=== PATIENT | male | born 1985 | race Caucasian/White ===

== ENCOUNTER 2024-08-06 16:39 | Emergency (ER) | payer OTHER, SELFPAY ==
[2024-08-06 16:49] VITALS: BP 168/105; PULSE 92; RESP 18; TEMP 36.8; BMI 36.1
--- NOTE | 2024-08-06 17:42 | ED_ITS ---
HPI - General Adult General Chief complaint: Laceration/Wound Stated complaint: hit on head with metal tool Time Seen by Provider: 08/06/24 16:53 Source: patient Mode of arrival: ambulatory Limitations: no limitations History of Present Illness HPI narrative: 39-year-old male presenting today with scalp laceration. Patient was putting in a fence when he pounded a stake in the ground, the tool ricocheted and hit him on the top of the head. This occurred approximately 30 minutes ago. He had an immediate headache, which resolved. He did not lose consciousness. He denies any changes in his vision or hearing. He denies any confusion, nausea or vomiting. Tetanus shot was updated 12/04/2023. Related Data Home Medications ?Medication ?Instructions ?Recorded ?Confirmed No Known Home Medications 08/06/24 08/06/24 Allergies Allergy/AdvReac Type Severity Reaction Status Date / Time No Known Allergies Allergy Unknown Unknown Verified 08/06/24 16:48 Review of Systems Status of ROS: Reports: 6 or more systems reviewed and unremarkable except as noted in History and below [facility] Medical History History of hyperlipidemia ?Z86.39 - Personal history of other endocrine, nutritional and metabolic disease (ICD-10) Exposure to severe acute respiratory syndrome coronavirus 2 (SARS-CoV-2) ?Z20.822 - Contact with and (suspected) exposure to COVID-19 (ICD-10) Social History Smoking Status: Never smoker How often do you have a drink containing alcohol: never How often do you have six or more drinks on one occasion: Never AUDIT-C Alcohol total score: 0 Non-prescribed substance use: denies use service: No Exam Narrative: Exam Narrative: Well-nourished well-developed patient in no acute distress. Alert and oriented. Answers questions appropriately. Mood and affect are appropriate. Thoughts are goal oriented and rational. No tangential or magical thinking noted. Aleah ent speaks in full sentences without needing to catch his breath. HEENT: Normocephalic . Pupils are equally round reactive to light. Extraocular muscles are intact. Conjunctivae are moist without any icterus noted. Moist mucous membranes. Patient has an approximately 2 in laceration to the top of the scalp, just distal to the front hairline in the center of the head. The laceration penetrates into the subcutaneous tissue, there is no bony visualization. There is no arterial bleeding noted. Const: Vital Signs, click to edit/add: Vital Signs - 24 hr 08/06/24 16:49 Temperature 98.2 F Pulse Rate [Pulse Oximeter] 92 Respiratory Rate 18 Blood Pressure [Ri ght Upper Arm] 168/105 H Course Course ED Course: The area was anesthetized with lidocaine with epinephrine. The wound was then irrigated and explored. No foreign bodies visualized. Running suture with 3-0 Prolene was placed. Patient tolerated the procedure well. Good hemostasis is achieved. Wound is dressed with pressure dressing. Vital Signs Vital signs: Initial Vital Signs Temperature 98.2 F 08/06/24 16:49 Temperature Source Temporal Artery Scan 08/06/24 16:49 Pulse Rate 92 08/06/24 16:49 Respiratory Rate 18 08/06/24 16:49 Blood Pressure 168/105 H 08/06/24 16:49 Blood Pressure Mean 126 H 08/06/24 16:49 Vital Signs Temperature 98.2 F 08/06/24 16:49 Pulse Rate 92 08/06/24 16:49 Respiratory Rate 18 08/06/24 16:49 Blood Pressure 168/105 H 08/06/24 16:49 Temperature 98.2 F 08/06/24 16:49 Pulse Rate 92 08/06/24 16:49 Respiratory Rate 18 08/06/24 16:49 Blood Pressure 168/105 H 08/06/24 16:49 Medical Decision Making [facility] Narrative Medical decision making narrative: 39-year-old male status post laceration to the scalp treated per above. We discussed wound hygiene, signs symptoms of infection reasons to return to clinic. Suture removal in 7-10 days. No evidence of concussion noted. Discharge Plan Discharge Clinical Impression: Laceration Patient Disposition: Home, Self-Care Condition: Stable Additional Instructions: Keep wound clean and dry. Do not soak such as taking baths, swimming. Okay to shower like you normally would and wash hair with warm soapy water. Follow-up in approximately 1 week for suture removal with your primary care provider. Watch for signs and symptoms of infection including increasing redness of the area, purulent drainage, or fever. If this occurs follow-up right away with your doctor or return to the ER. Prescriptions: No Action No Known Home Medications Stand Alone Forms: [employer] Info Instructions
== END 2024-08-06 18:24 | disposition home or self-care (01) ==
PROVIDERS: Emergency Provider Family Medicine
DX: S01.01XA Laceration without foreign body of scalp, initial encounter (principal); W20.8XXA Other cause of strike by thrown, projected or falling object, initial encounter; Y93.H3 Activity, building and construction
CPT/HCPCS: 12001; 99283; 99284

== ENCOUNTER 2025-01-09 08:11 | Day surgery (SDC) | payer OTHER, SELFPAY ==
[2025-01-09] VITALS (12 sets, daily range): BP systolic 116–146; BP diastolic 75–95; PULSE 55–80; RESP 16–20; TEMP 36.4–36.6; O2SAT 80–100; BMI 37.1
[2025-01-09] MEDS: SODIUM CHLORIDE 0.9 % (FLUSH) 10 ML SYRINGE IVF (08:46)
[2025-01-09] MEDS: LACTATED RINGERS 1000 ML 1,000 ML 100 ML IV (09:00)
--- NOTE | 2025-01-09 09:17 | W.PM.H&PU ---
History & Physical Update History & Physical Update H&P Reviewed and patient assessed: No changes noted
[2025-01-09] MEDS: CEFAZOLIN 1 GM inj IVP (10:28)
[2025-01-09] MEDS: BUPIVACAINE 0.5 %/EPI 1:200K 30 ML INJECTION (10:52)
--- NOTE | 2025-01-09 11:05 | P.ANES_ITS ---
Anesthesia Charges Start Date/Time Anesthesia Start Date: 01/09/25 Anesthesia Start Time: 10:15 Stop Date/Time Anesthesia Stop Date: 01/09/25 Anesthesia Stop Time: 11:51 Coding CPT Codes CPT Codes: ANESTH LOWER LEG BONE SURG - 06167 ([id number]) P2 - PATIENT W/MILD SYST DISEASE, QK - SPOOLER 2-4 CNCRNT ANES PROC, QX - BLENDER OPERATOR SVC W/ MD MED DIRECTION
--- NOTE | 2025-01-09 11:05 | W.ANESCHARGE ---
Anesthesia Charges Start Date/Time Anesthesia Start Date: 01/09/25 Anesthesia Start Time: 10:15 Stop Date/Time Anesthesia Stop Date: 01/09/25 Anesthesia Stop Time: 11:51 Coding CPT Codes CPT Codes: ANESTH LOWER LEG BONE SURG - 15326 ([id number]) P2 - PATIENT W/MILD SYST DISEASE, QK - DRAW BENCH OPERATOR 2-4 CNCRNT ANES PROC, QX - PUBLIC HEALTH OFFICER SVC W/ MD MED DIRECTION
--- NOTE | 2025-01-09 11:47 | P.ANES_ITS ---
Anesthesia Charges Start Date/Time Anesthesia Start Date: 01/09/25 Anesthesia Start Time: 10:15 Stop Date/Time Anesthesia Stop Date: 01/09/25 Anesthesia Stop Time: 11:51 Coding CPT Codes CPT Codes: ANESTH LOWER LEG BONE SURG - 22660 ([id number]) P2 - PATIENT W/MILD SYST DISEASE, QK - CLUB MANAGER 2-4 CNCRNT ANES PROC, QX - STAGE SETTING PAINTER APPRENTICE SVC W/ MD MED DIRECTION
--- NOTE | 2025-01-09 11:47 | W.ANESCHARGE ---
Anesthesia Charges Start Date/Time Anesthesia Start Date: 01/09/25 Anesthesia Start Time: 10:15 Stop Date/Time Anesthesia Stop Date: 01/09/25 Anesthesia Stop Time: 11:51 Coding CPT Codes CPT Codes: ANESTH LOWER LEG BONE SURG - 75404 ([id number]) P2 - PATIENT W/MILD SYST DISEASE, QK - FACING CUTTING MACHINE OPERATOR 2-4 CNCRNT ANES PROC, QX - NEW BUSINESS CLERK SVC W/ MD MED DIRECTION
--- NOTE | 2025-01-09 11:51 | P.ORPRC_ITS ---
Procedure Note Date of procedure: 01/09/25 Procedure: PREOPERATIVE DIAGNOSES: 1. Left ankle Bimalleolar fracture, subacute POSTOPERATIVE DIAGNOSES: 1. Left ankle Bimalleolar fracture, subacute -lateral malleolus stable. Medial malleolus unstable. Syndesmosis stable. NAME OF OPERATION: 1. Left ankle lateral malleolus open reduction with internal fixation. 2. Intraoperative fluoroscopy up to 1 hour. C-arm fluoroscopy operated by Girma Peña M.D. for intraoperative fracture reduction and percutaneous K-wire insertion evaluation. 3 C-arm spot images were saved/sent to PACS. Fluoroscopy time was 52 seconds with total dose of 1.248 mGy. SURGEON: Girma Peña MD COASTAL/HARBOR DEFENSE OFFICER: Sam HERNANDEZ; Of note, an community relations assistant was critical for this case to aide in patient positioning, leg manipulation, tissue retraction, closure, patient safety, & splinting. ANESTHESIA: Spinal EBL: 5ml IMPLANTS: [Arthrex partially-threaded, cannulated, headed screws are (x2); 1 mL Allosync pure DBM TOURNIQUET: 30 minutes at 300 torr. INDICATIONS: The patient is a pleasant 31-year-old male who sustained a left ankle injury approximately 5.5 weeks ago and initially had difficulty bearing weight. He was seen at a medical facility where an ultrasound was done concerning for a DVT. This was negative. He continued to walk on it and do his landscaping job with difficulty. He eventually sought medical care again just approximately 1 week ago where x-rays were obtained revealed a bimalleolar ankle fracture. There was abundant callus along the lateral malleolus but still fracture gap and minimal callus along the medial malleolus. He felt that the medial side was more unstable and still had mobility/motion. Given these findings and his ongoing pain, surgery was indicated to stabilize the medial malleolus and stress the lateral side and possibly fix that as well. FINDINGS: Closed, unstable medial malleolar fracture fragment. After stabilizing this, the lateral malleolus was stressed and found to be stable (Stevens C location). The syndesmosis was also subsequently stressed and found to be stable. PROCEDURE: Following a thorough discussion of risks, benefits, and alternatives, consent was obtained and the left ankle was marked. The patient was brought to the operating room and placed supine on the operating table. Induction of anesthesia was undertaken. Appropriate time out was performed identifying proper patient, site and procedure. 2 g IV Ancef was administered within 1 hour of incision preoperatively. The left lower extremity was prepped and draped in the appropriate sterile fashion using ChloraPrep prep. The limb was exsanguinated and the tourniquet inflated. A longitudinal incision was made overlying the medial malleolus. Sharp incision through skin and blunt dissection to the subcutaneous tissue loss to protect crossing neurovascular structures. The periosteum was also incised with a 15 blade. This was then elevated with a blunt elevator. The fracture had some callus over the surface of it, this was debrided with a combination of rongeur and curette. Fracture was mobilized and then reduced with the dental pick. It was stabilized with 2 separate K-wires that were confirmed on C-arm fl uoroscopic imaging in both the AP and lateral planes to ensure that they were intraosseous and sparing the joint. These were then measured, drilled, and partially-threaded headed cannulated screws were placed with excellent security of the medial malleolus fragment. There was some minor bone loss from our debridement of the fracture site. Thus, 1 mL of allosync pure DBM was utilized for bone void filling. We then stressed the ankle with external rotation and eversion and the lateral malleolus and the syndesmosis remained stable. At this stage, the wound was thoroughly irrigated with normal saline. Closure was performed with #0 Vicryl for the deep periosteum, tourniquet deflated and hemostasis achieved. 2-0 Stratafix for the subcutaneous, and 4-0 statafix for subcuticular layers comp leted the closure. Dressings were applied, and a sugar-tong splint was applied. The patient was awoken from anesthesia and transferred to the PACU in stable condition. PLAN: 1. Elevate operative extremity. 2. Encouraged ice PRN. 3. Tylenol, ibuprofen, and/or Oxycodone for pain as needed. 4. Follow up with PA visit in 10-14 days with removal splint, transition to Cam boot, and initiate weightbear as tolerated. Then follow-up with me at the 6 week dutch. Repeat x-rays right ankle-three views. 5. Toe touch weightbearing operative extremity at this time until 1st postop visit.
== END 2025-01-09 13:44 | disposition home or self-care (01) ==
LOC: OR 08:12
PROVIDERS: PCP Family Medicine; Visit Provider Orthopaedic Surgery Sports Medicine
PROC: (CPT 27766; principal; 2025-01-09 10:15)
DX: S82.842A Displaced bimalleolar fracture of left lower leg, initial encounter for closed fracture (principal)
CPT/HCPCS: 27766; 01480; 73600; 76000; 97116; 97162; C1713; J0690; J1100; J1171; J2250; J2405; J2704; J3010; J3490; J7120; Q4125

== ENCOUNTER 2025-03-20 15:45 | Outpatient (RCR) | payer OTHER, SELFPAY ==
--- NOTE | 2025-03-20 15:57 | PT.OPDNX ---
PT [facility] Daily Note PT [facility] Daily Note Start: 01/23/25 09:28 Freq: Status: Active Protocol: Document 03/20/25 12:57 NLR (Rec: 03/20/25 15:56 NLR [id number]) E-signed By Willa Rios DPT PT OP Daily Progress Note Visit Information Note Type Discharge Note Visit Number 7 Insurance Information Insurance Name [facility] Medical Diagnosis Z98.890 Post procedural L ankle ORIF Displaced bimalleolar fracture of left lower leg, initial encounter for closed fracture (closed) Treating Diagnosis M62.572 L ankle weakness M25.672 L ankle stiffness Imaging Report 02/24/25 Xray: stable appearing medial malleolus status Information post ORIF with 2 cannulated screws. Fracture line is still evident, but starting to bridge the gap. Distal fibular callus continues to mature. Referring MD Girma Peña MD Subjective Preferred Name BLAKE Ford is doing very well. He is walking independently no little to no gait disturbance in his own work boots. He has a small residual ankle dorsiflexion leg, but it's minimal. He does his HEP every day while he is working. 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 He states he has no questions, little to no pain (occasional stiffness) and is not unable to do anything in his normal daily life. Pain Comments Date of Last 02/24/25 Physician Visit Date of Next 04/11/25 Physician Visit Date of Surgery (If 01/09/25 applicable) Home Exercise Home Exercise Reviewed, modified and progressed HEP today. Comments Access Code: [email or web address] URL: [email or web address] Date: 03/20/2025 Prepared by: Willa Rios Exercises - Achilles Tendon/Calf Stretches - 2 x daily - 7 x weekly - 1-2 reps - 30-60 seconds hold - stretch exercise type - Y Slider - Toe on Disk - 2 x daily - 7 x weekly - 2 sets - 10 reps - 2-3 seconds hold - strength exercise type - Y Slider - Air Slider - 2 x daily - 7 x weekly - 2 sets - 10 reps - 2-3 seconds hold - strength/balance exercise type - Single Leg Ball Pass - 2 x daily - 7 x weekly - 2 sets - 10 reps - 2-3 seconds hold - strength exercise type - Supported Controlled Step Up - 2 x daily - 7 x weekly - 2 sets - 10 reps - 2-3 seconds hold - strength exercise type - Controlled Forward Step Down - 2 x daily - 7 x weekly - 2 sets - 10 reps - 2-3 seconds hold - strength exercise type - Standing Stair Knee Flexion Stretch - 2 x daily - 7 x weekly - 1-2 reps - 20-30 seconds hold - stretch exercise type - Forward Tandem Walking - 2 x daily - 7 x weekly - 1- 3 reps - 10-30 feet distance - balance exercise type - Backward Tandem Walking - 2 x daily - 7 x weekly - 1 -3 reps - 10-30 feet distance - balance exercise type - Jump Off Platform with Soft Landing - 2 x daily - 7 x weekly - 2 sets - 10 reps - 2-3 seconds hold - strength exercise type - Box Jump - 2 x daily - 7 x weekly - 2 sets - 10 reps - 2-3 seconds hold - strength exercise type - Single-Leg English Deadlift With Kettlebell - 2 x daily - 7 x weekly - 2 sets - 10 reps - 2-3 seconds hold - strength/balance exercise type Objective Other/Pertinent ANKLE RANGE OF MOTION: Objective R ankle 25DF - 40 PF, INV 20, EV 20 L ankle 20DF - 40 PF, INV 20, EV 15 Patient Instructed Yes in Risks/Benefits Therapeutic Exercise Therapeutic Exercise 30 Minutes (minutes) Therapeutic Exercise - Recumbent bike 5' seat 6 : To Restore - 18# English lift Functional Status - Standing Achilles stretch on 3 bar - Y Slider - Toe on Disk - Y Slider - Air Slider - Single Leg Ball Pass - Supported Controlled Step Up - Controlled Forward Step Down (remind to lift heel) - Standing Stair Knee Flexion Stretch - Small Jump Down 4 - Bent Knees - Small Box Jump Up 4 - Forward Tandem Walking on foam beam - Backward Tandem Walking Treatment Minutes Timed Code Treatment 30 Minutes Total Treatment Time 30 Billing Units Therapeutic Exercise 2 Units Assessment/Impression Assessment/ Blake has progressed quickly. He is independent, no Impression ankle pain, minimal stiffness with dorsiflexion. He is working his normal job with no restrictions and is very active in his daily life. He is I in his HEP and states there is nothing he feels he cannot do. He tolerates moderate impact with small box jumps and balance has improved significantly. Skilled intervention no longer indicated, he has achieved all of his goals. Will DC with HEP. Plan of Care Physical Therapy 1. Patient will be independent with home exercise Goals program as instructed, modified and progressed by physical therapist in order to be independently and actively participating in their rehabilitation and return to prior level of function. Goal to be achieved by 04/24/2025. ACHIEVED 2. Patient will demonstrate ability to walk for 60 minutes(s) without significant increase in pain greater than 2/10 to allow patient to be able to safely and independently return to participation in desired level of function with daily activities such going to work, walking for exercise without pain or difficulty. Goal to be achieved by 04/24/2025. ACHIEVED 3. Patient will ascend/descend 2 full flight(s) of stairs with [id number] pattern without significant increase in difficulty or pain over 2/10 allowing for safe and independent mobility through their home/work environment. Goal to be achieved by 04/24/2025. ACHIEVED Daily Plan of Care Discharge Daily Plan of Care DC with HEP Comments Discharge Note Discharge Summary Blake has progressed quickly. He is independent, no ankle pain, minimal stiffness with dorsiflexion. He is working his normal job with no restrictions and is very active in his daily life. He is I in his HEP and states there is nothing he feels he cannot do. He tolerates moderate impact with small box jumps and balance has improved significantly. Skilled intervention no longer indicated, he has achieved all of his goals. Will DC with HEP. Date of First Visit 01/23/25 for Therapy Date of Last Visit 03/20/25 for Therapy Initial Primary Difficulty walking without gait aid, weakness in ankle. Functional Limitations Initial Pain Level 8/10 Pain Level at 0/10 Discharge Recommendations/ Met All Therapy Goals Reason for Discharge Discharge DC with HEP Instructions Thank You For This Thank you for this physical therapy referral. Please Referral do not hesitate to contact us with any questions or concerns. Blake is doing fantastic, discharged from PT today with no lingering issues.
== END 2025-04-07 17:08 | disposition home or self-care (01) ==
PROVIDERS: PCP Family Medicine; Visit Provider Physician Assistant Surgical
DX: S82.842D Displaced bimalleolar fracture of left lower leg, subsequent encounter for closed fracture with routine healing (principal); M25.672 Stiffness of left ankle, not elsewhere classified; M62.572 Muscle wasting and atrophy, not elsewhere classified, left ankle and foot; Z47.89 Encounter for other orthopedic aftercare; Z98.890 Other specified postprocedural states
CPT/HCPCS: 97110; 97116; 97161

== ENCOUNTER 2025-07-25 06:20 | Day surgery (SDC) | payer OTHER, SELFPAY ==
[2025-07-25 06:31] VITALS: BMI 34.0
[2025-07-25 06:53] VITALS: BP 122/77; PULSE 62; RESP 16; TEMP 37; O2SAT 98
[2025-07-25] MEDS: SODIUM CHLORIDE 0.9 % (FLUSH) 10 ML SYRINGE IVF (06:54)
[2025-07-25] MEDS: LACTATED RINGERS 1000 ML 1,000 ML 100 ML IV (06:54)
--- NOTE | 2025-07-25 07:26 | W.PM.H&PU ---
History & Physical Update History & Physical Update H&P Reviewed and patient assessed: No changes noted
--- NOTE | 2025-07-25 07:29 | PM.GSPRC ---
Operative Note Date of procedure: 07/25/25 Pre-op diagnosis: 1. Desire for permanent method of contraception. 2. Foreshortened scrotum. Post-op diagnosis: Same Type of Procedure: 1. Vasectomy. Indications: 40-year-old male was seen by for consultation for vasectomy. on clinical exam patient had foreshortened scrotum and his vas deferens was difficult to palpate. Vasectomy under MAC anesthesia was recommended. The procedure was discussed in detail. The risks associated procedure including infection, bleeding, prolonged pain, and painful nodules were all discussed with the patient, and he agreed to proceed. Procedure Description: After discussing the risks and benefits of the procedure, the patient signed informed consent.? The operative site was marked and the patient was brought to the operating room and placed on the operating table in supine position.? Care was taken to pad the patient's pressure points.?? The patient was then sedated by anesthesia.?? The operative site was then prepped and draped in the usual sterile fashion.? A time-out was then performed. I first started on the right side. The right vas deferens was located in the scrotum.The vas was grasped with my fingers. 1% Lidocaine was injected at the site of surgical incision and around the vas deferens. The right scrotal incision was made with a scalpel. Soft tissues were dissected with a fine dissecting clamp. The vas deferens was clamped with a ring clamp. Fibrous tissue encasing the vas was peeled off bluntly until it was clear. Clips were placed on the proximal and distal ends of the vas deferens and 1 cm segment was excised. This segment was sent to pathology as the right vas deferens. No bleeding was seen in the surgical field. I then proceeded on the left side. The left vas deferens was located in the scrotum. The vas was grasped with my fingers. 1% Lidocaine was injected at the site of surgical incision and around the vas deferens. The left scrotal incision was made with a scalpel. Soft tissues were dissected with a fine dissecting clamp. The vas deferens was clamped with a ring clamp. Fibrous tissue encasing the vas was peeled off bluntly until it was clear. Clips were placed on the proximal and distal ends of the vas deferens and 1 cm segment was excised. This segment was sent to pathology as the left vas deferens. No bleeding was seen in the surgical field. Bilateral incisions were left open. Sterile gauze and Neosporin were placed over the incisions. All counts were correct at the end of the case. ? The patient was then woken and transported to the recovery area in stable condition. ? The patient tolerated the procedure well. Anesthesia: MAC and local Surgeon: Sage Brady MD Estimated blood loss (mL): 1 Additional Specimen Information: 1. Right vas deferens. 2. Left vas deferens. Condition: stable Disposition: same day
[2025-07-25] MEDS: BACITRACIN OINTMENT BULK TUBE 1 APPLIC TOPICAL (07:52)
[2025-07-25 07:58] VITALS: BP 108/74; PULSE 78; RESP 16; TEMP 36.3; O2SAT 96
--- NOTE | 2025-07-25 08:14 | P.ANES_ITS ---
Anesthesia Charges Start Date/Time Anesthesia Start Date: 07/25/25 Anesthesia Start Time: 07:25 Stop Date/Time Anesthesia Stop Date: 07/25/25 Anesthesia Stop Time: 08:01 Coding CPT Codes CPT Codes: ANESTH VASECTOMY - 48995 ([id number]) P2 - PATIENT W/MILD SYST DISEASE, QK - OPTICAL BRIGHTENER MAKER HELPER 2-4 CNCRNT ANES PROC, QX - LOG TUMBLER SVC W/ MD MED DIRECTION
--- NOTE | 2025-07-25 08:14 | W.ANESCHARGE ---
Anesthesia Charges Start Date/Time Anesthesia Start Date: 07/25/25 Anesthesia Start Time: 07:25 Stop Date/Time Anesthesia Stop Date: 07/25/25 Anesthesia Stop Time: 08:01 Coding CPT Codes CPT Codes: ANESTH VASECTOMY - 87803 ([id number]) P2 - PATIENT W/MILD SYST DISEASE, QK - TIRE SHOP MANAGER 2-4 CNCRNT ANES PROC, QX - FLEET DISPATCH MANAGER SVC W/ MD MED DIRECTION
[2025-07-25 08:15] VITALS: BP 116/70; PULSE 67; RESP 16; O2SAT 96
[2025-07-25 08:30] VITALS: BP 143/90; PULSE 73; RESP 16; O2SAT 98
[2025-07-25 08:45] VITALS: BP 120/84; PULSE 64; RESP 16; O2SAT 97
--- NOTE | 2025-07-25 10:00 | P.ANES_ITS ---
Anesthesia Charges Start Date/Time Anesthesia Start Date: 07/25/25 Anesthesia Start Time: 07:25 Stop Date/Time Anesthesia Stop Date: 07/25/25 Anesthesia Stop Time: 08:01 Coding CPT Codes CPT Codes: ANESTH VASECTOMY - 95533 ([id number]) QK - JOINT CREASER 2-4 CNCRNT ANES PROC, QX - GLASS DEPOSITION TENDER SVC W/ MD MED DIRECTION, P2 - PATIENT W/MILD SYST DISEASE
--- NOTE | 2025-07-25 10:00 | W.ANESCHARGE ---
Anesthesia Charges Start Date/Time Anesthesia Start Date: 07/25/25 Anesthesia Start Time: 07:25 Stop Date/Time Anesthesia Stop Date: 07/25/25 Anesthesia Stop Time: 08:01 Coding CPT Codes CPT Codes: ANESTH VASECTOMY - 56748 ([id number]) QK - CHARGING OPERATOR 2-4 CNCRNT ANES PROC, QX - EHR TRAINER SVC W/ MD MED DIRECTION, P2 - PATIENT W/MILD SYST DISEASE
== END 2025-07-25 08:58 | disposition home or self-care (01) ==
PROVIDERS: PCP Family Medicine; Visit Provider Surgery
PROC: (CPT 55250; principal; 2025-07-25 07:30)
DX: Z30.2 Encounter for sterilization (principal)
CPT/HCPCS: 55250; 00921; J2250; J2704; J3010; J7120